=== PATIENT | male | born 1990 | race Hispanic/Latino ===

== ENCOUNTER 2019-05-28 13:50 | Emergency (ER) | payer MEDICARE, OTHER ==
[2019-05-28] MEDS ORDERED: Acetaminophen 500 MG TAB ONE (14:35)
== END 2019-05-28 14:57 | disposition home or self-care (01) ==
LOC: ERS 13:50
DX: R50.9 Fever, unspecified (principal); Z20.828 Contact with and (suspected) exposure to other viral communicable diseases
CPT/HCPCS: 87635; 99283; U0002